=== PATIENT | female | born 2005 | race Caucasian/White ===

== ENCOUNTER 2024-07-21 10:14 | Emergency (ER) | payer OTHER, SELFPAY ==
[2024-07-21 10:17] VITALS: BP 148/73; PULSE 61; RESP 16; TEMP 36.9; O2SAT 100; BMI 25.5
--- NOTE | 2024-07-21 10:29 | CRLHL7_ITS ---
For Patients: As a result of the Cures Act, medical imaging exams and procedure reports are released immediately into your electronic medical record. You may view this report before your referring provider. If you have questions, please contact your health care provider. INDICATION: Right flank pain. History of UTI. History of right renal laceration with multiple kidney surgery since July 2023. COMPARISON: None. TECHNIQUE: Sonographic evaluation of the abdomen was performed utilizing guardado-scale and color/spectral Doppler imaging techniques. FINDINGS: No gallbladder wall thickening. No pericholecystic fluid. No cholelithiasis. Negative sonographic Contreras`s sign. Common bile duct measures 3 millimeter in diameter. Liver measures 14.6 centimeters. Normal hepatic echogenicity. Smooth hepatic contour. Visualized portions of the pancreas is unremarkable. Right kidney measures 11.4 centimeters. There is a 15 millimeter anechoic cyst within the right interpolar kidney. There is focal cortical thinning at the right interpolar kidney which may be post operative or represent variant anatomy such as from duplication or partial duplication of the renal collecting system. No right-sided hydronephrosis. Visualized abdominal aorta is normal in caliber. Hepatopetal flow within the main portal vein. Main portal vein measures 1.1 centimeters in diameter. Main portal vein velocity measures 35 centimeters/second. Visualized IVC is patent. IMPRESSION: No sonographic findings to explain pain. Focal cortical thinning of the right interpolar kidney may be postoperative or due to variant anatomy such as from duplication or partial duplication of the renal collecting system. Comparison with prior imaging would be necessary to more definitively assess. Dictated by Jose Daniel Dyson MD @ 07/21/2024 12:44:45 PM (Electronically Signed)
--- NOTE | 2024-07-21 10:30 | ED_ITS ---
HPI - General Adult General Chief complaint: Flank Pain Stated complaint: Kidney issues Time Seen by Provider: 07/21/24 10:16 History of Present Illness HPI narrative: Patient is a pleasant 18 year white female who is being treated for UTI, she has a couple days left of antibiotic. She started treatment about 3 days ago. She had dysuria frequency. Those symptoms have all abated but she continues to have some right low back discomfort. Worse with movement, worse with some type of bending. No history of back pain no history of back injury. She had a history of remote kidney injury where she had a cyst kidney laceration from a traumatic injury. In she was concerned about that. She has no heave gross hematuria, her urinary symptoms have resolved as mention no rigors chills. She does not have constant unremitting pain like a kidney stone, but she does have some slight dis comfort when she moves or intermittently if she is at rest. She was seen at the [facility] and had a diagnosis of UTI. She does not recall the antibiotic she is on. As mentioned her symptoms of UTI have improved. She has no rigors, chills, hematuria or dysuria. Related Data Home Medications ?Medication ?Instructions ?Recorded ?Confirmed No Known Home Medications 07/21/2406/27 Allergies Allergy/AdvReac Type Severity Reaction Status Date / Time No Known Drug Allergies Allergy Verified 07/21/24 10:24 Review of Systems Status of ROS: Reports: 6 or more systems reviewed and unremarkable except as noted in History and below [facility] PFS Social History Smoking Status: Never smoker Do you use any of these nicotine containing products: None How often do you have a drink containing alcohol: 2-4 times a month How many standard drinks containing alcohol do you have on a typical day: 1 or 2 How often do you have six or more drinks on one occasion: Never AUDIT-C Alcohol total score: 2 Non-prescribed substance use: denies use service: No Exam Narrative: Exam Narrative: Objective: Vital signs show slightly elevated blood pressure, afebrile, O2 sat excellent Alert or x3 No CVA tenderness Her discomfort is more in her posterior superior iliac spine on the right. She has normal neurologic function, no abdominal pain. Const: Vital Signs, click to edit/add: Vital Signs - 24 hr 07/21/24 10:17 07/21/24 12:15 Temperature 98.5 F Pulse Rate [Right Pulse Oximeter] 61 46 L Respiratory Rate 16 14 Blood Pressure [Ri ght Upper Arm] 148/73 H 117/73 Pulse Oximetry 100 98 Oxygen Delivery Me thod Room Air Room Air Course Vital Signs Vital signs: Initial Vital Signs Temperature 98.5 F 07/21/24 10:17 Temperature Source Temporal Artery Scan 07/21/24 10:17 Pulse Rate 61 07/21/24 10:17 Pulse Rhythm Regular 07/21/24 10:17 Pulse Strength 3+ Normal 07/21/24 10:17 Respiratory Rate 16 07/21/24 10:17 Blood Pressure 148/73 H 07/21/24 10:17 Blood Pressure Mean 98 07/21/24 10:17 Blood Pressure Position Sitting 07/21/24 10:17 Pulse Oximetry 100 07/21/24 10:17 Oxygen Delivery Method Room Air 07/21/24 10:17 Vital Signs Temperature 98.5 F 07/21/24 10:17 Pulse Rate 61 07/21/24 10:17 Respiratory Rate 16 07/21/24 10:17 Blood Pressure 148/73 H 07/21/24 10:17 Pulse Oximetry 100 07/21/24 10:17 Oxygen Delivery Method Room Air 07/21/24 10:17 Temperature 98.5 F 07/21/24 10:17 Pulse Rate 46 L 07/21/24 12:15 Respiratory Rate 14 07/21/24 12:15 Blood Pressure 117/73 07/21/24 12:15 Pulse Oximetry 98 07/21/24 12:15 Oxygen Delivery Method Room Air 07/21/24 12:15 Medical Decision Making [facility] Narrative Medical decision making narrative: [age] year white female with recent UTI, with improvement, with some right low back discomfort, seems to be low be below her kidney area. Maybe just low back pain. I think for completeness will check a UA again will check her labs in renal function and will get an ultrasound of her right kidney to confirm that there is no hydronephrosis or other marked abnormality. I think we can do that as opposed to a CT scan with radiation especially given her age and lack of pain acuity. Addendum 12:18 p.m.: The patient's ultrasound by solid waste landfill technician report looks unremarkable, her urinalysis looks negative and he it and treated adequately, her blood work looks reassuring. I think this might be more related to her back she can take Advil or Tylenol for the next few days ice to her back. Follow up with regular doctor in 3-4 days not better. She can return any time worsening to the ER. I do not suspect kidney stone given the absence hematuria. The patient's radiologic over read on her imaging ultrasound of her right kidney shows some cortical thickening this is likely due to her prior laceration and trauma to her kidney. Lab Data Labs: Lab Results 07/21/24 07/21/24 Range/Units 10:38 10:45 WBC 6.52 (4.50-11.00) K/uL RBC 4.28 (4.00-5.20) m/uL Hgb 12.2 (12.0-16.0) gm/dL Hct 38.0 (33.0-51.0) % MCV 89 (80-100) fL MCH 29 (26-34) pg MCHC 32 (32-36) gm/dL RDW Coeff of Mavis 15.0 (11.5-15.5) % Plt Count 245 (140-440) K/uL Neut % (Auto) 65.6 (42.0-72.0) % Lymph % (Auto) 20.2 (20-44) % [place] % (Auto) 13.0 H (0.0-11.0) % Eos % (Auto) 0.6 (0.0-7.0) % Baso % (Auto) 0.3 (0.0-3.0) % Neut # (Auto) 4.27 (1.7-7.0) K/uL Lymph # (Auto) 1.32 (0.90-2.90) K/uL [place] # (Auto) 0.80 (0.00-0.90) K/UL Eos # (Auto) 0.04 (0.00-0.50) K/uL Baso # (Auto) 0.02 (0.00-0.30) K/uL Abs Immat Gran (auto) 0.02 (0.00-0.30) K/uL Imm/Tot Granulo (auto) 0.3 % Sodium 140 (135-149) mmol/L Potassium 4.3 (3.6-5.1) mmol/L Chloride 103 (96-114) mmol/L Carbon Dioxide 30 (20-32) mmol/L Anion Gap 7 (7-15) mEq/L BUN 16 (5-24) mg/dL Creatinine 1.0 (0.6-1.2) mg/dL Estimated Creat Clear 68.28 Estimated GFR 83 ml/min Glucose 90 (60-115) mg/dL Calcium 9.3 (8.7-10.8) mg/dL C-Reactive Protein 4.7 H (0.5-1.0) mg/dL HCG, Qual Negative (Negative) Urine Color Yellow (Yellow) Urine Appearance Clear (Clear) Urine pH 7.0 (5.0-8.5) Ur Specific [place] 1.010 (1.000-1.030) Urine Protein Negative (Negative) Urine Glucose (UA) Negative (Negative) Urine Ketones Negative (Negative) Urine Blood Negative (Negative) Urine Nitrite Negative (Negative) Urine Bilirubin Negative (Negative) Urine Urobilinogen 0.2 (0.2-1.0) Ur Leukocyte Esterase Negative (Negative) Urine RBC 0-2 (0-2) Urine WBC 0-2 (0-5) Ur Squamous Epith Cells Few (None-Few) Urine Bacteria None (None) Discharge Plan Discharge Clinical Impression: Urinary tract infection, Acute low back pain Patient Disposition: Home, Self-Care Condition: Stable Additional Instructions: Finish antibiotic, immediate may take Tylenol or ibuprofen as needed, ice to the low back as needed, and recommend recheck with her primary care doctor within the next 3-4 days. Return to the ED sooner problems concerns worsening thanks Activity Level: Light activity Discharge Diet: Regular Prescriptions: No Action No Known Home Medications Stand Alone Forms: MyHealth Info Instructions
[2024-07-21 10:54] LABS: Basophils Absolute Auto 0.02 K/uL (0.00-0.30); Basophils Percent Auto 0.3 % (0.0-3.0); Eosinophils Absolute Auto 0.04 K/uL (0.00-0.50); Eosinophils Percent Auto 0.6 % (0.0-7.0); Hemoglobin* 12.2 gm/dL (12.0-16.0); Immature Granulocytes Abs Auto 0.02 K/uL (0.00-0.30); Immature Granulocytes Pct Auto 0.3 %; Lymphocytes Absolute Auto 1.32 K/uL (0.90-2.90); Lymphocytes Percent Auto 20.2 % (20-44); Mean Corpuscular HGB Conc 32 gm/dL (32-36); Mean Corpuscular Hemoglobin 29 pg (26-34); Mean Corpuscular Volume 89 fL (80-100); Neutrophils Absolute Auto 4.27 K/uL (1.7-7.0); Neutrophils Percent Auto 65.6 % (42.0-72.0); Platelet Count* 245 K/uL (140-440); Red Blood Count 4.28 m/uL (4.00-5.20); White Blood Count* 6.52 K/uL (4.50-11.00)
[2024-07-21 10:56] LABS: Appearance Urine Clear (Clear); Bilirubin Urine Negative (Negative); Blood Urine Negative (Negative); Color Urine Yellow (Yellow); Glucose Urine Negative (Negative); Ketones Urine Negative (Negative); Leukocyte Esterase Urine Negative (Negative); Nitrite Urine Negative (Negative); Protein Urine Negative (Negative); Urobilinogen Urine 0.2 (0.2-1.0)
[2024-07-21 11:04] LABS: Chloride* 103 mmol/L (96-114); Potassium* 4.3 mmol/L (3.6-5.1); Sodium* 140 mmol/L (135-149)
[2024-07-21 11:05] LABS: Slide Review Reflex No
[2024-07-21 11:07] LABS: Blood Urea Nitrogen* 16 mg/dL (5-24); Est. Creatinine Clearance* 68.28; Estimated Glomerular Filt Rate 83 ml/min
[2024-07-21 11:08] LABS: Anion Gap 7 mEq/L (7-15); Calcium* 9.3 mg/dL (8.7-10.8); Carbon Dioxide* 30 mmol/L (20-32); Glucose* 90 mg/dL (60-115)
[2024-07-21 11:11] LABS: C Reactive Protein* 4.7 mg/dL (0.5-1.0)
[2024-07-21 11:45] LABS: HCG Qualitative Serum* Negative (Negative)
[2024-07-21 12:09] LABS: RBC Urine 0-2 (0-2); Squamous Epithelial Cell Urine Few (None-Few); WBC Urine 0-2 (0-5)
[2024-07-21 12:15] VITALS: BP 117/73; PULSE 46; RESP 14; O2SAT 98
== END 2024-07-21 13:05 | disposition home or self-care (01) ==
LOC: ED 10:48
PROVIDERS: Emergency Provider Family Medicine
DX: N39.0 Urinary tract infection, site not specified (principal); M54.50 Low back pain, unspecified
CPT/HCPCS: 36415; 76705; 80048; 81001; 84703; 85025; 86140; 87086; 99284